=== PATIENT | male | born 1930 | race Caucasian/White ===

== ENCOUNTER → 2016-07-13 | Outpatient (CLI) | payer OTHER ==
[~2016-07-13] MED LIST: AMLODIPINE BESY10 MG PO; ANDROGEL5 GM TD; ASPIR 8181 MG PO; ATENOLOL; BENAZEPRIL HCL40 MG PO; BISACODYL SUPP10 MG RECTAL; BUMETANIDE 1 MG1 M1 PO; BUMEX2 MG PO; CALCIUM 600 +1 EA12 PO; CARISOPRODOL; COREG6.25 MG PO; COUMADIN 2.5MG2.5 M1 PO; COUMADIN 5 MG TA5 M1 PO; ELIQUIS5 MG PO; FLOMAX; FLOMAX PO; FLONASE 0.05%50 MCG NASAL; HYDROCHLOROTHIA50 MG PO; K-DUR 20 MEQ T20 MEQ PO; KEFLEX250 MG PO; MECLIZINE HCL12.5 MG PO; MELATONIN3 MG PO; NISOLDIPINE20 MG PO; NORCO 5-325 TA1 EACH PO; NORVASC 5 MG TAB5 MG PO; PAXIL10 MG; SENOKOT-S1 TA1 PO; TAMSULOSIN HCL0.4 MG PO; TEARS NATURALE1 EACH OPHTHALMIC; TYLENOL325 MG PO; VITAMIN D1000 UNI1 PO
== END ==
LOC: ULTRA 08:38
DX: N28.1 Cyst of kidney, acquired (principal); R10.9 Unspecified abdominal pain

== ENCOUNTER 2017-01-03 09:51 | Inpatient (IN) | payer OTHER ==
[~2017-01-03] VITALS: Ht 180.3 cm; Wt 76.3 kg
--- NOTE | ~2017-01-03 | EKG ---
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
--- NOTE | ~2017-01-03 | 2DMMODE ---
[facility] [address] [place] [address] 2 D/M-MODE ECHOCARDIOGRAM Name: FELISA STEELE Room #: 207-P [facility] IN ..#: [id number] Admission: 01/03/17 Attend Phys: Mateusz Cuenca Discharge: Date of : 28 Date of Service: 01/03/17 1718 Report #: [id number] THIS REPORT FOR: //name// APPROVED REPORT Study performed: 01/03/2017 15:34:52 EXAM: Comprehensive 2D, Doppler, and color-flow Echocardiogram Patient Location: Bedside Room #: [facility] Status: routine Other Information Study Quality: Adequate Indications CVA/TIA 2D Dimensions RVDd: 46.18 mm LVEF(%): 63.22 (>50%) IVSd: 13.25 (7-11mm) LVOT Diam: 21.28 (18-24mm) LVDd: 42.01 mm PWd: 12.24 (7-11mm) Ascending Ao: 38.19 (22-36mm) LVDs: 27.76 (25-40mm) Aortic Root: 36.09 mm IVC: 2.60 mm Friend's LVEF: 63.22 % Volumes Left Atrial Volume (Systole) Single Plane 4CH: 118.12 mL Single Plane 2CH: 93.92 mL LA ESV Index: 59.00 mL/m2 Aortic Valve AoV Peak Qamar.: 1.09 m/s AO Peak Gr.: 4.73 mmHg LVOT Max P.98 mmHg LVOT Max V: 0.86 m/s LORI Vmax: 2.82 cm2 AI Vmax: 4.13 m/s AI [place]: 2.08 m/s2 AI PHT: 575.20 ms Mitral Valve E/A Ratio: 1.8 MV Decel. Time: 332.23 ms MV E Max Qamar.: 0.64 m/s [facility] [place] [address] 2 D/M-MODE ECHOCARDIOGRAM Name: FELISA STEELE Room #: 207-P [facility] IN .R.#: [id number] Admission: 01/03/17 Attend Phys: Mateusz Cuenca Discharge: Date of : 28 Date of Service: 01/03/17 1718 Report #: [id number] A Qamar.: 0.36 m/s MV PHT: 96.35 ms IVRT: 175.32 ms Pulmonary Valve PV Peak Qamar.: 0.78 m/s PV Peak Gr.: 2.42 mmHg Pulmonary Vein P Vein S: 0.32 m/s P Vein A: 0.25 m/s P Vein D: 0.61 m/s P Vein A Dur.: 83.0 msec P Vein S/D Ratio: 0.52 Tricuspid Valve TR Peak Qamar.: 2.83 m/s RAP Estimate: 15.00 mmHg TR Peak Gr.: 32.00 mmHg PA Pressure: 47.00 mmHg Left Ventricle The left ventricle is normal size. Mild concentric left ventricular hypertrophy. Left ventricular systolic function is moderately decreased. LVEF is 40%. This study is not technically sufficient to allow evaluation of the LV diastolic function. Right Ventricle The right ventricle is normal size. The right ventricular systolic function is normal. Atria Left atrium is dilated. Injection of bubbles documented no interatrial shunt. Right atrium is dilated. Aortic Valve The aortic valve is normal in structure. Mild aortic regurgitation. There is no aortic valvular stenosis. Mitral Valve The mitral valve is normal in structure. Mild mitral regurgitation. No evidence of mitral valve stenosis. Tricuspid Valve The tricuspid valve is normal in structure. There is mild to moderate tricuspid regurgitation. The right atrial pressure is estimated at 15 mmHg. There is moderate pulmonary hypertension with an estimated PAP of 47 [place] [address] 2 D/M-MODE ECHOCARDIOGRAM Name: FELISA STEELE Room #: 207-P [facility] IN ..#: [id number] Admission: 01/03/17 Attend Phys: Mateusz Cuenca Discharge: Date of : 28 Date of Service: 01/03/17 1718 Report #: [id number] The pulmonary valve is normal in structure. Trace pulmonic regurgitation. Great Vessels The aortic root is normal in size. The inferior vena cava is dilated with no inspiratory collapse. Pericardium There is no pericardial effusion. <Conclusion> The left ventricle is normal size. Left ventricular systolic function is moderately decreased. The right ventricle is normal size. Left atrium is dilated. Right atrium is dilated. Mild aortic regurgitation. Mild mitral regurgitation. There is mild to moderate tricuspid regurgitation. The right atrial pressure is estimated at 15 mmHg. There is moderate pulmonary hypertension with an estimated PAP of 47 mmHg. Injection of bubbles documented no interatrial shunt. <ELECTRONICALLY SIGNED> By: Deven Camacho MD 01/03/171717 17 17 Deven Camacho MD /INF
[2017-01-03 09:51] VITALS: BP 191/108
[~2017-01-03 09:51] MED LIST changes: +DOXYCYCLINE 10100 MG PO; +LEVAQUIN 750 M750 MG PO
[2017-01-03 10:04] LABS: HEMATOCRIT 35.6 % (42.0-52.0); MCH 31.8 pg (26.0-34.0); MCHC 33.8 g/dL (28.0-37.0); MCV 94.1 fL (80.0-100.0); PLATELET COUNT 148 thou/uL (150-400); RBC 3.79 mil/uL (4.50-6.00); RDW 14.1 % (10.5-14.5); WBC 8.5 thou/uL (4.0-11.0)
[2017-01-03 10:05] LABS: MANUAL DIFF YES
[2017-01-03 10:15] LABS: CALCIUM 9.2 mg/dL (8.5-10.1); CREATININE 0.9 mg/dL (0.7-1.3); POTASSIUM 3.4 mmol/L (3.5-5.1)
[2017-01-03 10:19] LABS: APTT 35.1 Seconds (24.5-32.8)
[2017-01-03 10:23] LABS: INR 1.1; PROTIME 11.8 Seconds (9.3-11.4)
[2017-01-03 10:41] LABS: ABSOLUTE NEUTROPHILS 5.7 thou/uL (1.4-8.2); PLATELET ESTIMATE NORMAL; TOTAL CELL COUNT 100
[2017-01-03 12:52] LABS: TSH 3.43 uIU/mL (0.358-3.740)
[2017-01-03 14:04] VITALS: BP 158/79
[2017-01-03 15:10] VITALS: BP 147/98
[2017-01-03 19:57] VITALS: BP 165/89
[2017-01-03 20:00] VITALS: BP 165/89
[2017-01-03 23:27] VITALS: BP 152/82
[2017-01-04 00:21] VITALS: BP 152/82
[2017-01-04 03:29] LABS: ANION GAP 7 mmol/L (7-16); BUN 22 mg/dL (7-18); CALCIUM 8.7 mg/dL (8.5-10.1); CHLORIDE 106 mmol/L (98-107); CHOLESTEROL 151 mg/dL (<200); CO2 28 mmol/L (21-32); CREATININE 0.9 mg/dL (0.7-1.3); GLUCOSE 95 mg/dL (74-106); HDL CHOLESTEROL 51 mg/dL (>40); LDL CHOLESTEROL 92 mg/dL (<100); MAGNESIUM 1.5 mg/dL (1.8-2.4); POTASSIUM 3.3 mmol/L (3.5-5.1); SODIUM 141 mmol/L (136-145); TRIGLYCERIDE 43 mg/dL (<150); VLDL 9 mg/dL (<40)
[2017-01-04 03:31] LABS: SERUM ASSESSMENT Clear
[2017-01-04 04:25] VITALS: BP 150/95
[2017-01-04 04:32] VITALS: BP 150/95
[2017-01-04 09:15] VITALS: BP 156/89
[2017-01-04 13:15] LABS: MAGNESIUM 1.7 mg/dL (1.8-2.4)
[2017-01-04 17:00] VITALS: BP 171/96
[2017-01-04 19:52] VITALS: BP 148/72
[2017-01-05 03:55] VITALS: BP 168/87
[2017-01-05 04:58] VITALS: BP 168/87
[2017-01-05] MEDS ORDERED: PLAVIX 75 MG TA75 M1 PO (10:48)
[2017-01-05] MEDS ORDERED: VITAMIN B-12500 MCG PO (10:48)
[2017-01-05] MEDS ORDERED: DUONEB 2.5-0.5 M3 ML INH (11:41)
[2017-01-05] MEDS ORDERED: FLOMAX0.4 MG PO (11:41)
[2017-01-05] MEDS ORDERED: BENAZEPRIL 10 M10 MG PO (11:41)
[2017-01-05 13:00] VITALS: BP 150/88
[2017-01-05 13:14] VITALS: BP 175/86
[2017-01-06 22:06] LABS: ALPHA TOCOPHEROL 10.1 mg/L (5.3-17.5)
== END 2017-01-05 14:40 | DRG 69 ==
LOC: ER 09:51 → EROBS 11:24 → 2N 11:24
PROVIDERS: Emergency Medicine; Nurse Practitioner; Nurse Practitioner Acute Care; Psychiatry & Neurology Neurology
DX: G45.9 Transient cerebral ischemic attack, unspecified (principal); J18.9 Pneumonia, unspecified organism; I48.92 Unspecified atrial flutter; I48.91 Unspecified atrial fibrillation; I50.9 Heart failure, unspecified; I11.0 Hypertensive heart disease with heart failure; G47.30 Sleep apnea, unspecified; E83.42 Hypomagnesemia; H26.9 Unspecified cataract; E53.8 Deficiency of other specified B group vitamins; E87.6 Hypokalemia; I49.5 Sick sinus syndrome; G47.33 Obstructive sleep apnea (adult) (pediatric); Z79.82 Long term (current) use of aspirin; Z79.899 Other long term (current) drug therapy; Z87.891 Personal history of nicotine dependence; Z90.49 Acquired absence of other specified parts of digestive tract; Z95.0 Presence of cardiac pacemaker; Z90.79 Acquired absence of other genital organ(s); Z88.2 Allergy status to sulfonamides; Z88.8 Allergy status to other drugs, medicaments and biological substances
CPT/HCPCS: 10081

== ENCOUNTER → 2017-02-19 | Outpatient (CLI) | payer OTHER ==
[~2017-02-19] MED LIST changes: +BENAZEPRIL 10 M10 MG PO; +DUONEB 2.5-0.5 M3 ML INH; +FLOMAX0.4 MG PO; +PLAVIX 75 MG TA75 M1 PO; +VITAMIN B-12500 MCG PO
== END ==
LOC: RAD 08:16 → SPEECH 08:34 → RAD 13:46
DX: R13.12 Dysphagia, oropharyngeal phase (principal)

== ENCOUNTER → 2017-04-02 | Outpatient (CLI) | payer OTHER | LOC: SPEECH 09:45 → RAD 09:45 | DX: R13.10 Dysphagia, unspecified (principal) ==

== ENCOUNTER 2017-06-26 15:21 | Emergency (ER) | payer OTHER ==
[~2017-06-26] VITALS: Ht 177.8 cm; Wt 81.7 kg
--- NOTE | ~2017-06-26 | EKG ---
[place] [address] [facility] [email or web address] [address] ELECTROCARDIOGRAM REPORT Name: FELISA STEELE Room #: 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 : 1930 Requested By: Laura Zamarripa Order Number: [id number] MD: Az Wong Measurements Intervals [place] Rate: 71 P: [place]: QRS: -73 QRSD: 178 T: 82 QT: 472 QTc: 513 Interpretive Statements Afib/flutter and ventricular-paced rhythm No further analysis attempted due to paced rhythm Compared to ECG 01/03/2017 09:56:44 No significant changes Electronically Signed On 06-27-2017 9:26:18 QUALITATIVE EXECUTIVE RESEARCHER by Az Wong [email or web address] <ELECTRONICALLY SIGNED> By: Az Wong MD, [facility] 06/27/17 0926 1557 1557 Az Wong MD, [facility] /EPI
[2017-06-26 16:16] LABS: HEMATOCRIT 30.5 % (42.0-52.0); HEMOGLOBIN 10.2 gm/dL (14.0-18.0); MCH 31.4 pg (26.0-34.0); MCHC 33.5 g/dL (28.0-37.0); MCV 93.7 fL (80.0-100.0); PLATELET COUNT 182 thou/uL (150-400); RBC 3.25 mil/uL (4.50-6.00); RDW 14.2 % (10.5-14.5); WBC 9.3 thou/uL (4.0-11.0)
[2017-06-26 16:17] LABS: MANUAL DIFF YES
[2017-06-26 16:25] LABS: ANION GAP 5 mmol/L (7-16); BUN 29 mg/dL (7-18); CALCIUM 9.1 mg/dL (8.5-10.1); CHLORIDE 109 mmol/L (98-107); CO2 31 mmol/L (21-32); CREATININE 1.1 mg/dL (0.7-1.3); GLUCOSE 99 mg/dL (74-106); POTASSIUM 3.7 mmol/L (3.5-5.1); SODIUM 145 mmol/L (136-145)
[2017-06-26 16:30] LABS: INR 1.1; PROTIME 11.4 Seconds (9.3-11.4)
[2017-06-26 16:34] LABS: ALBUMIN 3.1 g/dL (3.4-5.0); ALKALINE PHOSPHATASE 97 U/L (46-116); SGOT 19 U/L (15-37); SGPT 24 U/L (30-65); TOTAL BILIRUBIN 0.3 mg/dL (<0.1-1.0); TOTAL PROTEIN 7.1 g/dL (6.4-8.2); TROPONIN-I < 0.04 ng/mL (<0.06)
[2017-06-26 16:42] LABS: ABSOLUTE NEUTROPHILS 5.4 thou/uL (1.4-8.2); TOTAL CELL COUNT 100
[2017-06-26] MEDS ORDERED: PROSCAR 5MG TABL5 MG PO (16:47)
[2017-06-26] MEDS ORDERED: LOPERAMIDE 2 MG2 M1 PO (16:48)
[2017-06-26] MEDS ORDERED: APAP650 PO (16:48)
[2017-06-26] MEDS ORDERED: SENNA PLUS TAB1 EACH PO (16:48)
[2017-06-26] MEDS ORDERED: MILK OF MA2400 MG/10 PO (16:49)
[2017-06-26] MEDS ORDERED: BUMEX2 MG PO (18:02)
== END 2017-06-26 18:10 | disposition home or self-care (01) ==
LOC: ER 15:21
PROVIDERS: Physician Assistant
DX: R60.9 Edema, unspecified (principal); K59.00 Constipation, unspecified; I50.9 Heart failure, unspecified; I48.91 Unspecified atrial fibrillation; I10 Essential (primary) hypertension; Z90.49 Acquired absence of other specified parts of digestive tract; Z86.73 Personal history of transient ischemic attack (TIA), and cerebral infarction without residual deficits; Z88.2 Allergy status to sulfonamides; Z88.8 Allergy status to other drugs, medicaments and biological substances; Z87.891 Personal history of nicotine dependence

== ENCOUNTER → 2018-08-01 | Outpatient (CLI) | payer OTHER ==
[~2018-08-01] MED LIST changes: +APAP650 PO; +LOPERAMIDE 2 MG2 M1 PO; +MILK OF MA2400 MG/10 PO; +PROSCAR 5MG TABL5 MG PO; +SENNA PLUS TAB1 EACH PO
--- NOTE | 2018-08-01 15:47 | 2DMMODE ---
[facility] [address] [place] [address] 2 D/M-MODE ECHOCARDIOGRAM Name: CEDRICFELISA G Room #: REG [facility]#: [id number] Admission: 08/01/18 Attend Phys: Deven Camacho MD Discharge: Date of : 28 Date of Service: 08/01/18 1546 Report #: [id number] THIS REPORT FOR: //name// ADDENDUM APPROVED REPORT Study performed: 08/01/2018 14:18:00 EXAM: Comprehensive 2D, Doppler, and color-flow Echocardiogram Patient Location: Out-Patient Room #: Echo lab 2 Status: routine BSA: 1.97 HR: 75 bpm BP: 150/80 mmHg Rhythm: Atrial Fibrillation Other Information Study Quality: Adequate Indications Atrial Fibrillation 2D Dimensions RVDd: 44.32 mm IVSd: 14.35 (7-11mm) LVOT Diam: 25.22 (18-24mm) LVDd: 45.79 mm PWd: 12.62 (7-11mm) Ascending Ao: 34.48 (22-36mm) LVDs: 36.01 (25-40mm) Aortic Root: 39.29 mm IVC: 25.00 mm Volumes Left Atrial Volume (Systole) Single Plane 4CH: 91.18 mL Single Plane 2CH: 129.01 mL LA ESV Index: 65.00 mL/m2 Aortic Valve AoV Peak Qamar.: 1.65 m/s AO Peak Gr.: 10.83 mmHg LVOT Max P.35 mmHg LVOT Max V: 1.04 m/s LORI Vmax: 3.16 cm2 AI Vmax: 3.02 m/s AI [place]: 2.53 m/s2 AI PHT: 345.58 ms Pulmonary Valve PV Peak Qamar.: 0.77 m/s PV Peak Gr.: 2.38 mmHg [facility] [place] [address] 2 D/M-MODE ECHOCARDIOGRAM Name: CEDRICFELISA [id number] Admission: 08/01/18 Attend Phys: Deven Camacho MD Discharge: Date of : 28 Date of Service: 08/01/18 1546 Report #: [id number] Tricuspid Valve TR Peak Qamar.: 2.49 m/s TR Peak Gr.: 24.86 mmHg PA Pressure: 35.00 mmHg Left Ventricle The left ventricle is normal size. Mild concentric left ventricular hypertrophy. Left ventricular systolic function is mildly decreased. LVEF is 45-50%. This study is not technically sufficient to allow evaluation of the LV diastolic function due to atrial fibrillation. Right Ventricle Right ventricle is dilated. The right ventricular systolic function is normal. Atria Left atrium is dilated. Right atrium is dilated. Aortic Valve The aortic valve is normal in structure. Aortic valve is calcified. Mild aortic regurgitation. There is no aortic valvular stenosis. Mitral Valve The mitral valve is normal in structure. Mild mitral regurgitation. No evidence of mitral valve stenosis. Tricuspid Valve The tricuspid valve is normal in structure. There is mild tricuspid regurgitation. Pulmonic Valve The pulmonary valve is normal in structure. Trace pulmonic regurgitation. Great Vessels The aortic root is normal in size. IVC is dilated and collapses >50% with inspiration. Pericardium Trace anterior pericardial effusion. <Conclusion> [facility] [place] [address] 2 D/M-MODE ECHOCARDIOGRAM Name: FELIZ STEELESAMANTHA Hannon Room #: REG [facility]#: [id number] Admission: 08/01/18 Attend Phys: Deven Camacho MD Discharge: Date of : 28 Date of Service: 08/01/18 154 Report #: [id number] The left ventricle is normal size. Mild concentric left ventricular hypertrophy. Left ventricular systolic function is mildly decreased. Right ventricle is dilated. Left atrium is dilated. Right atrium is dilated. Mild aortic regurgitation. Mild mitral regurgitation. There is mild tricuspid regurgitation. <ELECTRONICALLY SIGNED> By: Deven Camacho MD 08/01/18 1546 1546 154 Deven Camacho MD /INF
== END ==
LOC: CV 13:21
DX: I08.3 Combined rheumatic disorders of mitral, aortic and tricuspid valves (principal); I48.2 Chronic atrial fibrillation